=== PATIENT | female | born 1985 | race Caucasian/White ===

== ENCOUNTER 2023-11-04 18:44 | Emergency (ER) | payer OTHER ==
[~2023-11-04] VITALS: Ht 149.9 cm; Wt 59.1 kg
[~2023-11-04 18:44] MED LIST: DOXY100C PO
[2023-11-04 18:59] VITALS: BP 129/84; PULSE 106; RESP 18; TEMP 98.3
[2023-11-04 19:11] LABS: COVID AG,FIA SOURCE NASAL SWAB
[2023-11-04 19:31] LABS: INFLUENZA TYPE A NEGATIVE FOR TYPE A (NEGATIVE); SARS-COV2 (COVID) ANTIGEN,FIA Negative (Negative)
[2023-11-04 19:43] LABS: INFLUENZA TYPE B POSITIVE FOR TYPE B (NEGATIVE)
[2023-11-04] MEDS ORDERED: IBUP-1492 PO (20:11)
[2023-11-04] MEDS ORDERED: ACET-3385 PO (20:11)
[2023-11-04] MEDS: ACETAMINOPHEN 325 MG TABLET PO ONE (20:26)
== END 2023-11-04 20:49 | disposition home or self-care (01) ==
LOC: EMS 18:44
DX: J10.1 Influenza due to other identified influenza virus with other respiratory manifestations (principal); F17.210 Nicotine dependence, cigarettes, uncomplicated; F12.90 Cannabis use, unspecified, uncomplicated; Z20.822 Contact with and (suspected) exposure to COVID-19
CPT/HCPCS: 87804; 99283